=== PATIENT | female | born 1950 | race African-American/Black ===

== ENCOUNTER 2020-01-13 18:29 | Inpatient (IN) ==
[2020-01-14] MEDS ORDERED: D5 1/2 NS 1000 ML 1,000 ML IV ONE (00:15)
[2020-01-14] MEDS ORDERED: PEPCID TAB 20 MG PO PRN (00:16)
[2020-01-14] MEDS ORDERED: PLAQUENIL PO SCH (00:20)
[2020-01-14] MEDS ORDERED: ALLEGRA PO SCH (00:21)
[2020-01-14] MEDS ORDERED: D5W 1000 ML IV 1,000 ML IV ONE (00:54)
[2020-01-14] MEDS ORDERED: ZOFRAN INJ 4 MG VIAL ONE (01:09)
[2020-01-14] MEDS ORDERED: PHENERGAN INJ 25 MG IM ONE (01:19)
[2020-01-14 01:33] LABS: BASOPHILS % (AUTO) 0.2 % (0.2-1.0); EOSINOPHILS % (AUTO) 0.1 % (0.9-2.9); HEMATOCRIT 48.1 % (36.0-47.0); HEMOGLOBIN 15.7 g/dL (12.0-16.0); LYMPHOCYTES # (AUTO) 0.7 X10^3/uL (1.3-2.9); LYMPHOCYTES % (AUTO) 8.6 % (21.0-51.0); MEAN CORPUSCULAR HEMOGLOBIN 26.7 pg (27.0-34.0); MEAN CORPUSCULAR HGB CONC 32.7 g/dL (33.0-35.0); MEAN CORPUSCULAR VOLUME 81.6 fL (80.0-100.0); MEAN PLATELET VOLUME 8.9 fL (7.4-11.0); MONOCYTES # (AUTO) 0.9 x10^3/uL (0.3-0.8); MONOCYTES % (AUTO) 10.3 % (0.0-13.0); NEUTROPHILS # (AUTO) 6.8 x10^3/uL (2.2-4.8); NEUTROPHILS % (AUTO) 80.8 % (42.0-75.0); PLATELET COUNT 280 X10^3/uL (150.0-450.0); RED CELL DISTRIBUTION WIDTH 16.2 % (11.6-16.5); WHITE BLOOD COUNT 8.4 X10^3/uL (3.6-10.0)
[2020-01-14 01:43] LABS: ALBUMIN 2.7 g/dL (3.4-5.0); CALCIUM 8.2 mg/dL (8.5-10.1); CARBON DIOXIDE 15.8 mmol/L (21-32); COR CA(FOR HYPOALB) 9.2 mg/dL (8.5-10.1); CREATININE 7.5 mg/dL (0.55-1.02); MAGNESIUM 3.6 mg/dL (1.7-2.9); TOTAL PROTEIN 8.5 g/dL (6.4-8.2)
[2020-01-14 02:13] LABS: BILIRUBIN,URINE 1+ (NEGATIVE); BLOOD/HEMOGLOBIN,URINE 2+ (NEGATIVE); GLUCOSE, URINE NEGATIVE (NEGATIVE); KETONES,URINE NEGATIVE (NEGATIVE); LEUKOCYTE ESTERASE ,URINE NEGATIVE (NEGATIVE); NITRITES,URINE NEGATIVE (NEGATIVE); PROTEIN,URINE 2+ (NEGATIVE); UROBILINOGEN,URINE NORMAL (NORMAL)
[2020-01-14 02:27] LABS: AMORPHOUS SEDIMENT,UR 1+ /HPF (NEGATIVE); APPEARANCE,URINE CLEAR (CLEAR); BACTERIA,URINE TRACE /HPF (NEGATIVE); CALCIUM OXALATE CRYSTALS,UR RARE /HPF (NEGATIVE); COLOR,URINE YELLOW (YELLOW); RBC,URINE 0-2 /HPF (0-3); SQUAMOUS EPITHELIAL CELL,UR RARE /HPF (NEGATIVE)
[2020-01-14] MEDS ORDERED: ZITHROMAX INJ 500 MG VIAL 500 MG in NS 250 ML IV 250 ML IV ONE (03:00)
[2020-01-14] MEDS ORDERED: INVANZ INJ 1 GM VIAL 0.5 GM in NS 50 ML IV 50 ML IV ONE (03:00)
[2020-01-14] MEDS ORDERED: INVANZ INJ 1 GM VIAL ONE (03:15)
[2020-01-14] MEDS ORDERED: NS 50 ML IV + SPIKE MINIBAG* 50 ML IV ONE (03:15)
[2020-01-14] MEDS: D5 1/2 NS 1000 ML 1,000 ML IV SCH ×4 (04:29→23:41)
--- NOTE | 2020-01-14 06:10 | RAD ---
HISTORYCOVIDSTUDYCHEST, 1 [id number]/09/2019 stable compared to prior examFINDINGSThe trachea is midline. The cardiac silhouette is unremarkable. Patchy bilateral basilar opacities, concerning for multifocal pneumonia/infiltrates. Small left pleural effusion suspected.. The bony thorax is unremarkable.IMPRESSIONPatchy bibasilar opacities, left greater than right, concerning for multifocal infiltrate/pneumonia. Follow-up is recommended.Small left pleural effusion.Electronically signed by: Melissa Bella (Jan 14, 2020 06:10:04)
--- NOTE | 2020-01-14 07:28 | US ---
HISTORYACUTE RENAL FAILURESTUDYRENAL SONOGRAMCOMPARISONNoneTECHNIQUERenal sonogram with DopplerFINDINGSThe right kidney measures 9 x 5 x 5.5 cm and the left 9 x 4 x 5.6 cm. Normal cortical thickness. The kidneys appear echogenic. No hydronephrosis, calculus or mass identified. Normal vascularity to both kidneys.IMPRESSIONEchogenic kidneys consistent with medical renal disease.Electronically signed by: Phuc Jean-Baptiste (Jan 14, 2020 07:28:02)
[2020-01-14 07:49] LABS: ABG BASE EXCESS -11.5 mmol/L (-2.0-2.0)
[2020-01-14 07:50] LABS: ABG HCO3 12.4 mmol/L (22-26)
[2020-01-14] MEDS ORDERED: PEPCID TAB 20 MG PO SCH (09:00)
[2020-01-14] MEDS: ALLEGRA PO SCH ×2 (10:25→13:18)
[2020-01-14] MEDS: PEPCID TAB 20 MG PO SCH ×3 (10:26→13:19)
[2020-01-14] MEDS: PLAQUENIL PO SCH ×3 (10:26→22:00)
[2020-01-14] MEDS: LOVENOX INJ 30 MG SYR SC SCH (11:32)
[2020-01-14] MEDS ORDERED: ALLEGRA ONE (12:18)
[2020-01-14] MEDS ORDERED: ATIVAN INJ 2 MG VIAL IVP ONE (17:10)
[2020-01-14] MEDS ORDERED: ATIVAN INJ 2 MG VIAL ONE (17:13)
--- NOTE | 2020-01-14 18:02 | DR.H&P ---
H&P - History & Physical for Day of: H&P Date: 01/13/20 - Chief Complaint Chief Complaint: PNEUMONIA, DEHYDRATION, LETHARGY, ELEVATED POTASSIUM LEVEL REPORTED FROM OUTPT LABS, COVID 19 - History of Present Illness History of Present Illness: PT IS 69 BF DIRECT ADMIT FROM [place] WITH COVID 19 PNEUMONIA AND COMPLICATIONS INCLUDING DEHYDRATION, RENAL FAILURE, AND HYPERKALEMIA. PT ADMITTED FOR TREATMENT OF ACUTE, CRITICAL ILLNESS. - Past Medical History Past Medical History: Anxiety, Arthritis, Coronary Artery Disease, GERD, Hypertension - Social History Does patient currently use any type of tobacco product: No Have you used tobacco products in the last 12 months: No Type of Tobacco Use: None Alcohol Use: None Drug Use: None - Medications Home Medications: No Known Drug Allergies Allergy (Verified 01/14/20 02:39) CONTINUE taking the following medications amlodipine [Norvasc] 5 mg PO DAILY 01/14/20 [History] ascorbic acid (vitamin C) 1,000 mg PO BID 01/14/20 [History] azithromycin 500 mg PO DAILY 01/14/20 [History] famotidine 20 mg PO BID 01/14/20 [History] fexofenadine [Daniella Allergy] 180 mg PO DAILY 01/14/20 [History] hydroxychloroquine 200 mg PO BID 01/14/20 [History] hydroxyzine HCl 12.5 mg PO HS 01/14/20 [History] levofloxacin 250 mg PO DAILY 01/14/20 [History] losartan 100 mg PO DAILY 01/14/20 [History] mirtazapine [Remeron] 7.5 mg PO HS 01/14/20 [History] multivitamin [Daily-Zhang] 1 tab PO DAILY 01/14/20 [History] omeprazole 20 mg PO DAILY 01/14/20 [History] prednisone 20 mg PO DAILY 01/14/20 [History] zinc 220 mg PO DAILY 01/14/20 [History] - Review of Systems Constitutional: Fever, Weakness, Malaise Eyes: No Symptoms Reported ENT: Throat Pain Respiratory: Cough, Shortness of Breath Cardiovascular: No Symptoms Reported Gastrointestinal: Nausea Genitourinary: Retention Musculoskeletal: Back Pain, Leg Pain Skin: No Symptoms Reported Neurological: Weakness - Physical Exam Vital Signs: Temperature 98.4 F Pulse Rate [Apical] 113 Respiratory Rate 18 Blood Pressure [Right Arm] 148/73 O2 Sat by Pulse Oximetry 94 Oriented: Person Eyes: Normal Ear: Normal Nose: Normal Throat: Dry Respiratory: Diminished Throughout Cardiovascular: Tachycardia. negative: Edema : Normal Auscultation: Bowel Sounds: Normal Palpation: Normal Tenderness: Normal Skin: Decreased Turgur Musculoskeletal: Right, Left, Leg, Motor Deficit Mood Description: Flat Speech Pattern: Appropriate, Delayed - Assessment/Plan (1) Pneumonia due to COVID-19 virus Status: Acute Plan: ADMIT ICU, ISOLATION. IV HYDRATION, STRICT I &OS. IV ATBX THERAPY, BLOOD URINE AND SPUTUM CULTURE ON ADMISSION. VERIFY HOME MEDICATION. EKG, CE, CXR AND ABG. ELECTROLYTE CORRECTION (2) Hypoxia Status: Acute (3) Hyperkalemia Status: Acute (4) Acute renal failure Status: Acute - Allergies Allergies/Adverse Reactions: Allergies Allergy/AdvReac Type Severity Reaction Status Date / Time No Known Drug Allergies Allergy Verified 01/14/20 02:39
--- NOTE | 2020-01-14 19:13 | RAD ---
HISTORYCENTRAL LINE PLACEMENTSTUDYCHEST, 1 [id number]/19/2020 at 4:14 a.m.FINDINGSThe heart is normal. The pulmonary vessels are slightly prominent centrally. The lungs are hypoinflated with hazy bibasilar interstitial prominence which is increased. There is a left subclavian catheter in place with the tip extending slightly superiorly along proximal superior vena cava. No effusion or pneumothorax is seen.IMPRESSIONStatus post left subclavian catheter placement with the tip seen turned slightly superiorly along the superior vena cava. Suggest readjusting the catheter into the distal superior vena cava.Mild bibasilar atelectasis vs early infiltrates or scarring which is more prominent.Electronically signed by: MITCH PERKINS (Jan 14, 2020 19:12:52)
[2020-01-14 20:50] VITALS: BMI 16.6
[2020-01-15 05:01] LABS: BASOPHILS % (AUTO) 0.5 % (0.2-1.0); EOSINOPHILS % (AUTO) 0.3 % (0.9-2.9); HEMATOCRIT 44.9 % (36.0-47.0); HEMOGLOBIN 14.6 g/dL (12.0-16.0); LYMPHOCYTES # (AUTO) 0.6 X10^3/uL (1.3-2.9); LYMPHOCYTES % (AUTO) 12.7 % (21.0-51.0); MEAN CORPUSCULAR HEMOGLOBIN 26.6 pg (27.0-34.0); MEAN CORPUSCULAR HGB CONC 32.6 g/dL (33.0-35.0); MEAN CORPUSCULAR VOLUME 81.7 fL (80.0-100.0); MEAN PLATELET VOLUME 9.1 fL (7.4-11.0); MONOCYTES # (AUTO) 0.7 x10^3/uL (0.3-0.8); MONOCYTES % (AUTO) 13.1 % (0.0-13.0); NEUTROPHILS # (AUTO) 3.7 x10^3/uL (2.2-4.8); NEUTROPHILS % (AUTO) 73.4 % (42.0-75.0); PLATELET COUNT 257 X10^3/uL (150.0-450.0); RED BLOOD COUNT 5.49 X10^6/uL (3.5-5.4); RED CELL DISTRIBUTION WIDTH 15.5 % (11.6-16.5)
--- NOTE | 2020-01-15 05:04 | RAD ---
HISTORYSOBSTUDYCHEST, 1 [id number]/19/2020FINDINGSLeft subclavian central venous catheter has been readjusted, with its tip now projecting over the expected location of the superior to mid SVC. Patient is rotated to the left. Cardiomediastinal silhouette is mildly enlarged. Mild bilateral perihilar interstitial edema versus infiltrates. Left basilar atelectasis versus infiltrate with mild elevation of the left hemidiaphragm. No large pleural effusion. No pneumothorax. Osseous structures are stable.IMPRESSIONLeft subclavian CVC repositioning as detailed.Mild perihilar interstitial edema versus infiltrates.Elevated left hemidiaphragm with left basilar atelectasis versus infiltrates.Electronically signed by: Melissa Bella (Jan 15, 2020 05:03:14)
[2020-01-15 05:11] LABS: ALBUMIN 2.6 g/dL (3.4-5.0); CALCIUM 8.1 mg/dL (8.5-10.1); CARBON DIOXIDE 18.8 mmol/L (21-32); COR CA(FOR HYPOALB) 9.2 mg/dL (8.5-10.1); CREATININE 4.54 mg/dL (0.55-1.02); TOTAL PROTEIN 7.6 g/dL (6.4-8.2)
[2020-01-15 06:31] LABS: ABG HCO3 12.6 mmol/L (22-26)
[2020-01-15] MEDS: D5 1/2 NS 1000 ML 1,000 ML IV SCH ×2 (06:33→16:10)
[2020-01-15] MEDS ORDERED: REMDESIVIR (INVESTIGATIONAL DRUG GS-5734) 200 MG in NS 250 ML IV 250 ML IV NR (09:00)
[2020-01-15] MEDS: LOVENOX INJ 30 MG SYR SC SCH (09:57)
[2020-01-15] MEDS: REMDESIVIR (INVESTIGATIONAL DRUG GS-5734) 100 MG in NS 250 ML IV 250 ML IV SCH (09:58)
[2020-01-15] MEDS ORDERED: ALLEGRA ONE (10:04)
[2020-01-15] MEDS: ALLEGRA PO SCH (10:05)
[2020-01-15] MEDS: NORVASC TAB 5 MG PO SCH (10:06)
[2020-01-15] MEDS: PLAQUENIL PO SCH ×2 (10:07→23:24)
[2020-01-15] MEDS ORDERED: NS 50 ML IV + SPIKE MINIBAG* 50 ML IV ONE (10:08)
[2020-01-15] MEDS ORDERED: INVANZ INJ 1 GM VIAL ONE (10:08)
[2020-01-15] MEDS: PEPCID TAB 20 MG PO SCH (10:12)
[2020-01-15] MEDS: ZITHROMAX INJ 500 MG VIAL 500 MG in NS 250 ML IV 250 ML IV SCH (10:13)
[2020-01-15] MEDS: INVANZ INJ 1 GM VIAL 0.5 GM in NS 50 ML IV 50 ML IV SCH (10:15)
[2020-01-15] MEDS ORDERED: PROTONIX INJ 40 MG VIAL IVP SCH (14:00)
[2020-01-15] MEDS ORDERED: LASIX IVP SCH (14:00)
[2020-01-15] MEDS: SOLU-Medrol 125 MG VIAL IVP SCH ×2 (15:16→23:24)
[2020-01-15] MEDS: BENADRYL INJ 50 MG VIAL IVP SCH (17:05)
[2020-01-15] MEDS: PROTONIX INJ 40 MG VIAL IVP SCH (23:24)
[2020-01-16] MEDS: BENADRYL INJ 50 MG VIAL IVP SCH ×3 (01:56→17:58)
[2020-01-16] MEDS ORDERED: SOLU-Medrol 40 MG VIAL ONE (04:38)
[2020-01-16] MEDS: SOLU-Medrol 125 MG VIAL IVP SCH ×3 (06:13→21:01)
[2020-01-16] MEDS ORDERED: ALLEGRA ONE (09:24)
[2020-01-16] MEDS: D5 1/2 NS 1000 ML 1,000 ML IV SCH (09:40)
[2020-01-16] MEDS: ALLEGRA PO SCH (09:42)
[2020-01-16] MEDS: NORVASC TAB 5 MG PO SCH (09:43)
[2020-01-16] MEDS: PEPCID TAB 20 MG PO SCH (09:43)
[2020-01-16] MEDS: LOVENOX INJ 30 MG SYR SC SCH (09:43)
[2020-01-16] MEDS: REMDESIVIR (INVESTIGATIONAL DRUG GS-5734) 100 MG in NS 250 ML IV 250 ML IV SCH (09:44)
[2020-01-16] MEDS: PROTONIX INJ 40 MG VIAL IVP SCH ×2 (09:44→20:47)
[2020-01-16] MEDS: PLAQUENIL PO SCH ×3 (09:44→20:48)
[2020-01-16] MEDS: ZITHROMAX INJ 500 MG VIAL 500 MG in NS 250 ML IV 250 ML IV SCH (10:30)
[2020-01-16] MEDS: INVANZ INJ 1 GM VIAL 0.5 GM in NS 50 ML IV 50 ML IV SCH (15:00)
[2020-01-16 16:51] LABS: BASOPHILS % (AUTO) 0.3 % (0.2-1.0); HEMATOCRIT 39.4 % (36.0-47.0); LYMPHOCYTES # (AUTO) 0.4 X10^3/uL (1.3-2.9); LYMPHOCYTES % (AUTO) 8.3 % (21.0-51.0); MEAN CORPUSCULAR HEMOGLOBIN 26.7 pg (27.0-34.0); MEAN CORPUSCULAR HGB CONC 32.9 g/dL (33.0-35.0); MEAN CORPUSCULAR VOLUME 81.1 fL (80.0-100.0); MEAN PLATELET VOLUME 8.7 fL (7.4-11.0); MONOCYTES # (AUTO) 0.2 x10^3/uL (0.3-0.8); MONOCYTES % (AUTO) 4.3 % (0.0-13.0); NEUTROPHILS # (AUTO) 3.8 x10^3/uL (2.2-4.8); NEUTROPHILS % (AUTO) 87.1 % (42.0-75.0); PLATELET COUNT 268 X10^3/uL (150.0-450.0); RED BLOOD COUNT 4.85 X10^6/uL (3.5-5.4); RED CELL DISTRIBUTION WIDTH 15.7 % (11.6-16.5); WHITE BLOOD COUNT 4.3 X10^3/uL (3.6-10.0)
[2020-01-16 16:54] LABS: CALCIUM 8.3 mg/dL (8.5-10.1); CARBON DIOXIDE 22.7 mmol/L (21-32); CREATININE 2.76 mg/dL (0.55-1.02)
[2020-01-16 16:59] LABS: ALBUMIN 2.8 g/dL (3.4-5.0); COR CA(FOR HYPOALB) 9.3 mg/dL (8.5-10.1); TOTAL PROTEIN 7.8 g/dL (6.4-8.2)
[2020-01-16] MEDS: D5W 1000 ML IV 1,000 ML IV SCH (17:45)
[2020-01-16] MEDS ORDERED: PROCALAMINE 3 % 1,000 ML IV SCH (18:00)
[2020-01-16] MEDS: PROCALAMINE 3 % 1,000 ML IV SCH (18:18)
[2020-01-16] MEDS ORDERED: COLACE CAP 100 MG PO ONE (19:41)
[2020-01-16] MEDS: COLACE CAP 100 MG PO SCH (20:47)
[2020-01-17] MEDS: BENADRYL INJ 50 MG VIAL IVP SCH ×3 (01:56→17:48)
[2020-01-17] MEDS: SOLU-Medrol 125 MG VIAL IVP SCH ×3 (05:59→21:02)
[2020-01-17] MEDS: D5W 1000 ML IV 1,000 ML IV SCH ×2 (06:00→10:23)
[2020-01-17 06:15] LABS: BASOPHILS % (AUTO) 0.2 % (0.2-1.0); HEMATOCRIT 39.2 % (36.0-47.0); HEMOGLOBIN 12.8 g/dL (12.0-16.0); LYMPHOCYTES # (AUTO) 0.3 X10^3/uL (1.3-2.9); MEAN CORPUSCULAR HEMOGLOBIN 26.4 pg (27.0-34.0); MEAN CORPUSCULAR HGB CONC 32.7 g/dL (33.0-35.0); MEAN PLATELET VOLUME 8.3 fL (7.4-11.0); MONOCYTES # (AUTO) 0.3 x10^3/uL (0.3-0.8); MONOCYTES % (AUTO) 5.5 % (0.0-13.0); NEUTROPHILS # (AUTO) 5.1 x10^3/uL (2.2-4.8); NEUTROPHILS % (AUTO) 88.3 % (42.0-75.0); PLATELET COUNT 271 X10^3/uL (150.0-450.0); RED BLOOD COUNT 4.84 X10^6/uL (3.5-5.4); RED CELL DISTRIBUTION WIDTH 15.4 % (11.6-16.5); WHITE BLOOD COUNT 5.8 X10^3/uL (3.6-10.0)
[2020-01-17 06:25] LABS: ALBUMIN 2.7 g/dL (3.4-5.0); CALCIUM 8.5 mg/dL (8.5-10.1); COR CA(FOR HYPOALB) 9.5 mg/dL (8.5-10.1); CREATININE 2.5 mg/dL (0.55-1.02); TOTAL PROTEIN 7.7 g/dL (6.4-8.2)
--- NOTE | 2020-01-17 06:41 | RAD ---
HISTORYSOB pneumoniaSTUDYAP [id number]/20/2020FINDINGSStable heart size. Persistent interstitial densities in both lungs which may represent chronic peribronchial thickening or a more acute inflammatory process. There is no new consolidation, PE or pleural fluid. Left subclavian catheter again noted terminating near the cavoatrial junction.IMPRESSIONThere is no significant change in appearance of the chest since 01/15/2020.Electronically signed by: JAMES CONWAY (Jan 17, 2020 06:40:46)
[2020-01-17] MEDS ORDERED: ALLEGRA ONE (08:43)
[2020-01-17] MEDS: ZITHROMAX INJ 500 MG VIAL 500 MG in NS 250 ML IV 250 ML IV SCH (10:01)
[2020-01-17] MEDS: REMDESIVIR (INVESTIGATIONAL DRUG GS-5734) 100 MG in NS 250 ML IV 250 ML IV SCH (10:02)
[2020-01-17] MEDS: PROTONIX INJ 40 MG VIAL IVP SCH ×2 (10:03→21:02)
[2020-01-17] MEDS: LOVENOX INJ 30 MG SYR SC SCH (10:03)
[2020-01-17] MEDS: PEPCID TAB 20 MG PO SCH (10:17)
[2020-01-17] MEDS: NORVASC TAB 5 MG PO SCH (10:17)
[2020-01-17] MEDS: ALLEGRA PO SCH (10:17)
[2020-01-17] MEDS: PLAQUENIL PO SCH ×2 (10:18→21:02)
--- NOTE | 2020-01-17 11:16 | PCM.PROG ---
Progress Note - Progress Note for Day of Date of Exam: 01/17/20 - Subjective Subjective: IS A PATIENT OF . SHE IS BEING TREATED FOR PNEUMONIA DUE TO COVID-19, HYPOXIA, ACUTE RENAL FAILURE, URINARY TRACT INFECTION, AND DYSPHAGIA. SHE IS A RESIDENT OF [facility]. TODAY, SHE IS LYING IN BED ON MORNING ROUNDS. SHE AWAKENS TO VERBAL STIMULI. SHE C ONTINUES WITH COMPLAINTS OF HICCUPS, WEAKNESS, AND A MILD COUGH. SHE CONTINUES TO REPORT DIFFICULTY SWALLOWING. SHE IS CURRENTLY UTILIZING OXYGEN VIA NASAL CANNULA. ON EXAMINATION, HEART IS REGULAR IN RATE AND RHYTHM. BILATERAL LUNGS ARE NOTED WITH DIMINISHED LUNG SOUNDS THROUGHOUT. ABDOMEN IS ROUND, SOFT, AND NON-TENDER WITH NORMAL BOWEL SOUNDS NOTED IN ALL QUADRANTS. HER VITALS THIS MORNING ARE: 98.0-98-18-95%NC-136/81. LABS WERE OBTAINED. ABNORMAL LAB VALUES INCLUDE THE FOLLOWING: SODIUM 150, CHLORIDE 114, BUN 101, CREATININE 2.50, GLUCOSE 150, FERRITIN 606, CRP 26.90, ALBUMIN 2.7, GLOBULIN 5.0. AN ABG WAS OBTAINED AND REVEALED: PH 7.310, PC02 25, P02 96, HC03 12.6, 02 ST 97, BASE EXCESS -12.0, FI02 28. A CHEST XRAY WAS OBTAINED AND REVEALED: Stable heart size. Persistent interstitial densities in both lungs which may represent chronic peribronchial thickening or a more acute inflammatory process. There is no new consolidation, PE or pleural fluid. Left subclavian catheter again noted terminating near the cavoatrial junction. SHE IS CURRENTLY RECEIVING D5W AT 75 ML/HR, REMDESIVIR 100MG IV DAILY, INVANZ 0.5G IV DAILY, AZITHROMYCIN 500MG IV DIALY, LOVENOX 30MG SC DAILY, SOLU-MEDROL 80MG IV Q8H, PROTONIX 40MG IV BID, PLAQUENIL 200MG PO BID, PROCALAMINE AT 50 ML/HR, NORVASC 5MG PO DAILY. WE WILL CONTINUE WITH CURRENT PLAN OF CARE TODAY. OTHERWISE, WE PLAN TO FOLLOW UP WITH AM LABS, CHEST XRAY, AND ABG AND CONTINUE TO MONITOR. - Past Medical Family Social History Past Med/Fam/Surg Hx: No changes since H&P Allergies: Allergies No Known Drug Allergies Allergy (Verified 01/14/20 02:39) - Review of Systems ROS: No change since H&P - Vital Signs and I&O's Vital Signs: Temperature 98 F Pulse Rate [Apical] 98 Respiratory Rate 18 Blood Pressure [Right Arm] 136/81 O2 Sat by Pulse Oximetry 95 Intake and Output: Intake & Output 01/14/20 01/15/20 01/16/20 01/17/20 11:59 11:59 11:59 11:59 Intake Total 1310 / 1310 2089 / 0 2062 / 2062 2723 / 2723 Output Total 50 / 50 1200 / 1200 2575 / 2575 1850 / 1850 Balance 1260 / 1260 890 / 890 -512 / -512 873 / 873 - Physical Exam Oriented: Person Eyes: Normal Ear: Normal Nose: Normal Throat: Dry Respiratory: Generalized, Diminished Cardiovascular: Normal. negative: Edema : Normal Auscultation: Bowel Sounds: Normal Palpation: Normal Tenderness: Normal Skin: Decreased Turgur Musculoskeletal: Right, Left, Leg, Motor Deficit Mood Description: Flat Speech Pattern: Slurred - Laboratory and Diagnostics Result Diagrams: 01/17/20 05:55 01/17/20 05:55 Labs: 01/14/20 01:30 Urine,Clean Catch Urine Culture - Final Klebsiella Pneumoniae 01/14/20 00:50 Blood Blood Culture - Preliminary 01/14/20 03:45 Blood Blood Culture - Preliminary Laboratory WBC 5.8 X10^3/uL (3.6-10.0) 01/17/20 05:55 RBC 4.84 X10^6/uL (3.5-5.4) 01/17/20 05:55 Hgb 12.8 g/dL (12.0-16.0) 01/17/20 05:55 Hct 39.2 % (36.0-47.0) 01/17/20 05:55 MCV 81.0 fL (80.0-100.0) 01/17/20 05:55 MCH 26.4 pg (27.0-34.0) L 01/17/20 05:55 MCHC 32.7 g/dL (33.0-35.0) L 01/17/20 05:55 RDW 15.4 % (11.6-16.5) 01/17/20 05:55 Plt Count 271 X10^3/uL (150.0-450.0) 01/17/20 05:55 MPV 8.3 fL (7.4-11.0) 01/17/20 05:55 Neut % (Auto) 88.3 % (42.0-75.0) H 01/17/20 05:55 Lymph % (Auto) 6.0 % (21.0-51.0) L 01/17/20 05:55 [place] % (Auto) 5.5 % (0.0-13.0) 01/17/20 05:55 Eos % (Auto) 0.0 % (0.9-2.9) L 01/17/20 05:55 Baso % (Auto) 0.2 % (0.2-1.0) 01/17/20 05:55 Neut # (Auto) 5.1 x10^3/uL (2.2-4.8) H 01/17/20 05:55 Lymph # (Auto) 0.3 X10^3/uL (1.3-2.9) L 01/17/20 05:55 [place] # (Auto) 0.3 x10^3/uL (0.3-0.8) 01/17/20 05:55 Eos # (Auto) 0.0 x10^3/uL (0.0-0.2) 01/17/20 05:55 Baso # (Auto) 0.0 X10^3/uL (0.0-0.1) 01/17/20 05:55 Absolute Nucleated RBC 0.0 /100WBC 01/17/20 05:55 Sample Site Rbra 01/15/20 06:27 ABG pH 7.310 (7.35-7.45) L 01/15/20 06:27 ABG pCO2 25.0 mmHg (35.0-45.0) L 01/15/20 06:27 ABG pO2 96.0 mmHg (80.0-100.0) 01/15/20 06:27 ABG HCO3 12.6 mmol/L (22-26) L* 01/15/20 06:27 ABG O2 Saturation 97.0 % (90-100) 01/15/20 06:27 ABG Base Excess -12.0 mmol/L (-2.0-2.0) L 01/15/20 06:27 Ephraim Test N/a 01/15/20 06:27 A-a Gradient 72.0 mmHg 01/15/20 06:27 FiO2 28.0 01/15/20 06:27 Blood Gas Comments Pt monique well eb 01/15/20 06:27 Sodium 150 mmol/L (136-145) H* 01/17/20 05:55 Corrected Sodium 151 mmol/L (136-145) H 01/17/20 05:55 Potassium 3.9 mmol/L (3.5-5.1) 01/17/20 05:55 Chloride 114 mmol/L (98-107) H 01/17/20 05:55 Carbon Dioxide 22.0 mmol/L (21-32) 01/17/20 05:55 BUN 101 mg/dL (7-18) H 01/17/20 05:55 Creatinine 2.50 mg/dL (0.55-1.02) H 01/17/20 05:55 Est GFR (MDRD) Af Amer 24 (>60) L 01/17/20 05:55 Est GFR (MDRD) Non-Af 20 (>60) L 01/17/20 05:55 Glucose 154 mg/dL (65-99) H 01/17/20 05:55 Lactic Acid 1.6 mmol/L (0.4-2.0) 01/14/20 00:50 Calcium 8.5 mg/dL (8.5-10.1) 01/17/20 05:55 Corrected Calcium 9.5 mg/dL (8.5-10.1) 01/17/20 05:55 Magnesium 3.6 mg/dL (1.7-2.9) H 01/14/20 00:50 Ferritin 606 ng/mL (8-252) H 01/17/20 05:55 Total Bilirubin 0.20 mg/dL (0.2-1.0) 01/17/20 05:55 AST 18 Units/L (15-37) 01/17/20 05:55 ALT 20 Units/L (12-78) 01/17/20 05:55 Alkaline Phosphatase 85 Units/L (46-116) 01/17/20 05:55 C-Reactive Protein 26.90 mg/L (0-3.0) H 01/17/20 05:55 Total Protein 7.7 g/dL (6.4-8.2) 01/17/20 05:55 Albumin 2.7 g/dL (3.4-5.0) L 01/17/20 05:55 Globulin 5.0 g/dL (2.5-4.5) H 01/17/20 05:55 Albumin/Globulin Ratio 0.5 Ratio (1.1-2.1) L 01/17/20 05:55 Specimen Type Catherized urine 01/14/20 01:30 Urine Color Yellow (YELLOW) 01/14/20 01:30 Urine Appearance Clear (CLEAR) 01/14/20 01:30 Urine pH 5.0 (5.0 - 8.0) 01/14/20 01:30 Ur Specific [place] 1.025 (1.000-1.030) 01/14/20 01:30 Urine Protein 2+ (NEGATIVE) 01/14/20 01:30 Urine Glucose (UA) Negative (NEGATIVE) 01/14/20 01:30 Urine Ketones Negative (NEGATIVE) 01/14/20 01:30 Urine Occult Blood 2+ (NEGATIVE) 01/14/20 01:30 Urine Nitrite Negative (NEGATIVE) 01/14/20 01:30 Urine Bilirubin 1+ (NEGATIVE) 01/14/20 01:30 Urine Urobilinogen Normal (NORMAL) 01/14/20 01:30 Ur Leukocyte Esterase Negative (NEGATIVE) 01/14/20 01:30 Urine RBC 0-2 /HPF (0-3) 01/14/20 01:30 Urine WBC None seen /HPF (0-5) 01/14/20 01:30 Ur Squamous Epith Cells Rare /HPF (NEGATIVE) 01/14/20 01:30 Calcium Oxalate Crystal Rare /HPF (NEGATIVE) 01/14/20 01:30 Amorphous Sediment 1+ /HPF (NEGATIVE) 01/14/20 01:30 Urine Bacteria Trace /HPF (NEGATIVE) 01/14/20 01:30 Ur Culture Indicated? No/not indicated 01/14/20 01:30 Blood Type A POSITIVE 01/14/20 00:50 - Plan (1) Pneumonia due to COVID-19 virus Status: Acute (2) Hypoxia Status: Acute (3) Hyperkalemia Status: Acute (4) Acute renal failure Status: Acute Qualifiers: Acute renal failure type: unspecified Qualified Code(s): N17.9 - Acute kidney failure, unspecified
[2020-01-17] MEDS ORDERED: INVANZ INJ 1 GM VIAL ONE (11:55)
[2020-01-17] MEDS ORDERED: NS 50 ML IV + SPIKE MINIBAG* 50 ML IV ONE (11:59)
[2020-01-17] MEDS: INVANZ INJ 1 GM VIAL 0.5 GM in NS 50 ML IV 50 ML IV SCH (12:03)
[2020-01-17] MEDS: PROCALAMINE 3 % 1,000 ML IV SCH (14:39)
[2020-01-17] MEDS: COLACE CAP 100 MG PO SCH (21:01)
[2020-01-18] MEDS: D5W 1000 ML IV 1,000 ML IV SCH ×3 (01:35→10:34)
[2020-01-18] MEDS: BENADRYL INJ 50 MG VIAL IVP SCH ×3 (01:35→18:03)
[2020-01-18] MEDS: SOLU-Medrol 125 MG VIAL IVP SCH ×3 (06:06→22:02)
[2020-01-18 06:41] LABS: ALBUMIN 2.6 g/dL (3.4-5.0); CALCIUM 8.5 mg/dL (8.5-10.1); CARBON DIOXIDE 23.6 mmol/L (21-32); COR CA(FOR HYPOALB) 9.6 mg/dL (8.5-10.1); CREATININE 1.92 mg/dL (0.55-1.02)
[2020-01-18 06:46] LABS: BASOPHILS % (AUTO) 0.2 % (0.2-1.0); EOSINOPHILS % (AUTO) 0.1 % (0.9-2.9); HEMATOCRIT 36.4 % (36.0-47.0); HEMOGLOBIN 12.1 g/dL (12.0-16.0); LYMPHOCYTES # (AUTO) 0.4 X10^3/uL (1.3-2.9); LYMPHOCYTES % (AUTO) 5.8 % (21.0-51.0); MEAN CORPUSCULAR HEMOGLOBIN 26.9 pg (27.0-34.0); MEAN CORPUSCULAR HGB CONC 33.2 g/dL (33.0-35.0); MEAN CORPUSCULAR VOLUME 81.1 fL (80.0-100.0); MEAN PLATELET VOLUME 8.7 fL (7.4-11.0); MONOCYTES # (AUTO) 0.3 x10^3/uL (0.3-0.8); MONOCYTES % (AUTO) 5.4 % (0.0-13.0); NEUTROPHILS # (AUTO) 5.6 x10^3/uL (2.2-4.8); NEUTROPHILS % (AUTO) 88.5 % (42.0-75.0); PLATELET COUNT 273 X10^3/uL (150.0-450.0); RED BLOOD COUNT 4.49 X10^6/uL (3.5-5.4); RED CELL DISTRIBUTION WIDTH 15.1 % (11.6-16.5); WHITE BLOOD COUNT 6.4 X10^3/uL (3.6-10.0)
--- NOTE | 2020-01-18 07:12 | RAD ---
HISTORYFollow-up COVID-19STUDYChest AP [id number]/22/2020FINDINGSPatient is rotated to the left. There is a left-sided central jay e in good position. The heart is within normal limits in size. The lungs are mildly hypoinflated. Rig ht basilar interstitial lung changes are present. The remainder of the lung blevins are clear. No pleu ral effusions are identified.IMPRESSIONRight basilar interstitial lung changes, stableRemainder of th e lung blevins are now clearElectronically signed by: JOSEPH FRAUSTO (Jan 18, 2020 07:12:13)
[2020-01-18] MEDS ORDERED: ALLEGRA ONE (09:37)
[2020-01-18] MEDS: REMDESIVIR (INVESTIGATIONAL DRUG GS-5734) 100 MG in NS 250 ML IV 250 ML IV SCH (10:32)
[2020-01-18] MEDS: PROTONIX INJ 40 MG VIAL IVP SCH ×2 (10:33→22:01)
[2020-01-18] MEDS: ZITHROMAX INJ 500 MG VIAL 500 MG in NS 250 ML IV 250 ML IV SCH (10:33)
[2020-01-18] MEDS: LOVENOX INJ 30 MG SYR SC SCH (10:33)
[2020-01-18] MEDS ORDERED: INVANZ INJ 1 GM VIAL ONE (12:23)
[2020-01-18] MEDS ORDERED: NS 50 ML IV 50 ML IV ONE (12:24)
[2020-01-18] MEDS: PEPCID TAB 20 MG PO SCH (12:31)
[2020-01-18] MEDS: PLAQUENIL PO SCH ×3 (12:31→22:01)
[2020-01-18] MEDS: ALLEGRA PO SCH (12:32)
[2020-01-18] MEDS: NORVASC TAB 5 MG PO SCH (12:32)
[2020-01-18] MEDS: PROCALAMINE 3 % 1,000 ML IV SCH (12:33)
[2020-01-18] MEDS: INVANZ INJ 1 GM VIAL 0.5 GM in NS 50 ML IV 50 ML IV SCH (12:34)
[2020-01-18] MEDS ORDERED: SOLU-Medrol 40 MG VIAL ONE (20:03)
[2020-01-18] MEDS: COLACE CAP 100 MG PO SCH (22:01)
--- NOTE | 2020-01-18 23:05 | PCM.PROG ---
Progress Note - Progress Note for Day of Date of Exam: 01/18/20 - Subjective Subjective: IS A PATIENT OF . SHE IS BEING TREATED FOR PNEUMONIA DUE TO COVID-19, HYPOXIA, ACUTE RENAL FAILURE, URINARY TRACT INFECTION, AND DYSPHAGIA. SHE IS A RESIDENT OF [facility]. TODAY, SHE IS LYING IN BED ON MORNING ROUNDS. SHE AWAKENS TO VERBAL STIMULI. SHE C ONTINUES WITH COMPLAINTS OF WEAKNESS AND A MILD COUGH. SHE CONTINUES TO REPORT DIFFICULTY SWALLOWING. SHE IS CURRENTLY UTILIZING OXYGEN VIA NASAL CANNULA. ON EXAMINATION, HEART IS REGULAR IN RATE AND RHYTHM. BILATERAL LUNGS ARE NOTED WITH DIMINISHED LUNG SOUNDS THROUGHOUT. ABDOMEN IS ROUND, SOFT, AND NON-TENDER WITH NORMAL BOWEL SOUNDS NOTED IN ALL QUADRANTS. HER VITALS THIS MORNING ARE: 97.9-62-16-98%-122/75. LABS WERE OBTAINED. ABNORMAL LAB VALUES INCLUDE THE FOLLOWING: CHLORIDE 109, BUN 82, CREATININE 1.92, GLUCOSE 150, FERRITIN 596, CRP 15.60, ALBUMIN 2.6. A CHEST XRAY WAS OBTAINED AND REVEALED: Stable heart size. Persistent interstitial densities in both lungs which may represent chronic peribronchial thickening or a more acute inflammatory process. There is no new consolidation, PE or pleural fluid. Left subclavian catheter again noted terminating near the cavoatrial junction. URINE CULTURE REVEALED GROWTH OF KLEBSIELLA PNEUMONIAE. BLOOD CULTURES ARE PENDING. SHE IS CURRENTLY RECEIVING D5W AT 75 ML/HR, REMDESIVIR 100MG IV DAILY, INVANZ 0.5G IV DAILY, AZITHROMYCIN 500MG IV DIALY, LOVENOX 30MG SC DAILY, SOLU-MEDROL 80MG IV Q8H, PROTONIX 40MG IV BID, PLAQUENIL 200MG PO BID, PROCALAMINE AT 50 ML/HR, NORVASC 5MG PO DAILY. WE WILL CONTINUE WITH CURRENT PLAN OF CARE TODAY. OTHERWISE, WE PLAN TO FOLLOW UP WITH AM LABS, CHEST XRAY, AND ABG AND CONTINUE TO MONITOR. - Past Medical Family Social History Past Med/Fam/Surg Hx: No changes since H&P Allergies: Allergies No Known Drug Allergies Allergy (Verified 01/14/20 02:39) - Review of Systems ROS: No change since H&P - Vital Signs and I&O's Vital Signs: Temperature 97.3 F Pulse Rate [Right] 75 Pulse Rate [Apical] 98 Respiratory Rate 18 Blood Pressure [Right Arm] 139/80 O2 Sat by Pulse Oximetry 99 Intake and Output: Intake & Output 01/16/20 01/17/20 01/18/20 01/19/20 11:59 11:59 11:59 11:59 Intake Total 2062 / 3 2723 / 2723 3228 / 3228 1648 / 1648 Output Total 2575 / 2575 1850 / 1850 1974 1025 / 1025 Balance -512 / -512 873 / 873 1253 / 1253 623 / 623 - Physical Exam Oriented: Person Eyes: Normal Ear: Normal Nose: Normal Throat: Dry Respiratory: Generalized, Diminished Cardiovascular: Normal. negative: Edema : Normal Auscultation: Bowel Sounds: Normal Tenderness: Normal Skin: Decreased Turgur Musculoskeletal: Right, Left, Leg, Motor Deficit Mood Description: Flat Speech Pattern: Slurred - Laboratory and Diagnostics Result Diagrams: 01/18/20 04:40 01/18/20 04:40 Labs: 01/14/20 01:30 Urine,Clean Catch Urine Culture - Final Klebsiella Pneumoniae 01/14/20 00:50 Blood Blood Culture - Preliminary 01/14/20 03:45 Blood Blood Culture - Preliminary Laboratory WBC 6.4 X10^3/uL (3.6-10.0) 01/18/20 04:40 RBC 4.49 X10^6/uL (3.5-5.4) 01/18/20 04:40 Hgb 12.1 g/dL (12.0-16.0) 01/18/20 04:40 Hct 36.4 % (36.0-47.0) 01/18/20 04:40 MCV 81.1 fL (80.0-100.0) 01/18/20 04:40 MCH 26.9 pg (27.0-34.0) L 01/18/20 04:40 MCHC 33.2 g/dL (33.0-35.0) 01/18/20 04:40 RDW 15.1 % (11.6-16.5) 01/18/20 04:40 Plt Count 273 X10^3/uL (150.0-450.0) 01/18/20 04:40 MPV 8.7 fL (7.4-11.0) 01/18/20 04:40 Neut % (Auto) 88.5 % (42.0-75.0) H 01/18/20 04:40 Lymph % (Auto) 5.8 % (21.0-51.0) L 01/18/20 04:40 [place] % (Auto) 5.4 % (0.0-13.0) 01/18/20 04:40 Eos % (Auto) 0.1 % (0.9-2.9) L 01/18/20 04:40 Baso % (Auto) 0.2 % (0.2-1.0) 01/18/20 04:40 Neut # (Auto) 5.6 x10^3/uL (2.2-4.8) H 01/18/20 04:40 Lymph # (Auto) 0.4 X10^3/uL (1.3-2.9) L 01/18/20 04:40 [place] # (Auto) 0.3 x10^3/uL (0.3-0.8) 01/18/20 04:40 Eos # (Auto) 0.0 x10^3/uL (0.0-0.2) 01/18/20 04:40 Baso # (Auto) 0.0 X10^3/uL (0.0-0.1) 01/18/20 04:40 Absolute Nucleated RBC 0.2 /100WBC 01/18/20 04:40 Sample Site Rbra 01/15/20 06:27 ABG pH 7.310 (7.35-7.45) L 01/15/20 06:27 ABG pCO2 25.0 mmHg (35.0-45.0) L 01/15/20 06:27 ABG pO2 96.0 mmHg (80.0-100.0) 01/15/20 06:27 ABG HCO3 12.6 mmol/L (22-26) L* 01/15/20 06:27 ABG O2 Saturation 97.0 % (90-100) 01/15/20 06:27 ABG Base Excess -12.0 mmol/L (-2.0-2.0) L 01/15/20 06:27 Ephraim Test N/a 01/15/20 06:27 A-a Gradient 72.0 mmHg 01/15/20 06:27 FiO2 28.0 01/15/20 06:27 Blood Gas Comments Pt moniqeu well eb 01/15/20 06:27 Sodium 145 mmol/L (136-145) 01/18/20 04:40 Corrected Sodium 146 mmol/L (136-145) H 01/18/20 04:40 Potassium 4.0 mmol/L (3.5-5.1) 01/18/20 04:40 Chloride 109 mmol/L (98-107) H 01/18/20 04:40 Carbon Dioxide 23.6 mmol/L (21-32) 01/18/20 04:40 BUN 82 mg/dL (7-18) H 01/18/20 04:40 Creatinine 1.92 mg/dL (0.55-1.02) H 01/18/20 04:40 Est GFR (MDRD) Af Amer 33 (>60) L 01/18/20 04:40 Est GFR (MDRD) Non-Af 27 (>60) L 01/18/20 04:40 Glucose 150 mg/dL (65-99) H 01/18/20 04:40 Lactic Acid 1.6 mmol/L (0.4-2.0) 01/14/20 00:50 Calcium 8.5 mg/dL (8.5-10.1) 01/18/20 04:40 Corrected Calcium 9.6 mg/dL (8.5-10.1) 01/18/20 04:40 Magnesium 3.6 mg/dL (1.7-2.9) H 01/14/20 00:50 Ferritin 596 ng/mL (8-252) H 01/18/20 04:40 Total Bilirubin 0.30 mg/dL (0.2-1.0) 01/18/20 04:40 AST 31 Units/L (15-37) 01/18/20 04:40 ALT 28 Units/L (12-78) 01/18/20 04:40 Alkaline Phosphatase 79 Units/L (46-116) 01/18/20 04:40 C-Reactive Protein 15.60 mg/L (0-3.0) H 01/18/20 04:40 Total Protein 7.0 g/dL (6.4-8.2) 01/18/20 04:40 Albumin 2.6 g/dL (3.4-5.0) L 01/18/20 04:40 Globulin 4.4 g/dL (2.5-4.5) 01/18/20 04:40 Albumin/Globulin Ratio 0.6 Ratio (1.1-2.1) L 01/18/20 04:40 Specimen Type Catherized urine 01/14/20 01:30 Urine Color Yellow (YELLOW) 01/14/20 01:30 Urine Appearance Clear (CLEAR) 01/14/20 01:30 Urine pH 5.0 (5.0 - 8.0) 01/14/20 01:30 Ur Specific [place] 1.025 (1.000-1.030) 01/14/20 01:30 Urine Protein 2+ (NEGATIVE) 01/14/20 01:30 Urine Glucose (UA) Negative (NEGATIVE) 01/14/20 01:30 Urine Ketones Negative (NEGATIVE) 01/14/20 01:30 Urine Occult Blood 2+ (NEGATIVE) 01/14/20 01:30 Urine Nitrite Negative (NEGATIVE) 01/14/20 01:30 Urine Bilirubin 1+ (NEGATIVE) 01/14/20 01:30 Urine Urobilinogen Normal (NORMAL) 01/14/20 01:30 Ur Leukocyte Esterase Negative (NEGATIVE) 01/14/20 01:30 Urine RBC 0-2 /HPF (0-3) 01/14/20 01:30 Urine WBC None seen /HPF (0-5) 01/14/20 01:30 Ur Squamous Epith Cells Rare /HPF (NEGATIVE) 01/14/20 01:30 Calcium Oxalate Crystal Rare /HPF (NEGATIVE) 01/14/20 01:30 Amorphous Sediment 1+ /HPF (NEGATIVE) 01/14/20 01:30 Urine Bacteria Trace /HPF (NEGATIVE) 01/14/20 01:30 Ur Culture Indicated? No/not indicated 01/14/20 01:30 Blood Type A POSITIVE 01/14/20 00:50 - Plan (1) Pneumonia due to COVID-19 virus Status: Acute Plan: ADMIT ICU, ISOLATION. IV HYDRATION, STRICT I &OS. IV ATBX THERAPY, BLOOD URINE AND SPUTUM CULTURE ON ADMISSION. VERIFY HOME MEDICATION. EKG, CE, CXR AND ABG. ELECTROLYTE CORRECTION (2) Hypoxia Status: Acute (3) Hyperkalemia Status: Acute (4) Acute renal failure Status: Acute Qualifiers: Acute renal failure type: unspecified Qualified Code(s): N17.9 - Acute kidney failure, unspecified
[2020-01-19] MEDS: BENADRYL INJ 50 MG VIAL IVP SCH ×3 (01:50→18:04)
[2020-01-19] MEDS: D5W 1000 ML IV 1,000 ML IV SCH ×2 (03:57→18:11)
[2020-01-19] MEDS ORDERED: SOLU-Medrol 40 MG VIAL ONE ×2 (05:49→13:28)
[2020-01-19] MEDS: PROCALAMINE 3 % 1,000 ML IV SCH ×2 (06:09→11:57)
[2020-01-19] MEDS: SOLU-Medrol 125 MG VIAL IVP SCH ×3 (06:09→22:36)
[2020-01-19 06:10] LABS: BASOPHILS % (AUTO) 0.1 % (0.2-1.0); HEMATOCRIT 35.6 % (36.0-47.0); HEMOGLOBIN 11.8 g/dL (12.0-16.0); LYMPHOCYTES # (AUTO) 0.4 X10^3/uL (1.3-2.9); LYMPHOCYTES % (AUTO) 7.5 % (21.0-51.0); MEAN CORPUSCULAR HEMOGLOBIN 26.5 pg (27.0-34.0); MEAN CORPUSCULAR HGB CONC 33.3 g/dL (33.0-35.0); MEAN CORPUSCULAR VOLUME 79.6 fL (80.0-100.0); MEAN PLATELET VOLUME 8.3 fL (7.4-11.0); MONOCYTES # (AUTO) 0.2 x10^3/uL (0.3-0.8); MONOCYTES % (AUTO) 4.5 % (0.0-13.0); NEUTROPHILS # (AUTO) 4.7 x10^3/uL (2.2-4.8); NEUTROPHILS % (AUTO) 87.9 % (42.0-75.0); PLATELET COUNT 242 X10^3/uL (150.0-450.0); RED BLOOD COUNT 4.47 X10^6/uL (3.5-5.4); RED CELL DISTRIBUTION WIDTH 14.9 % (11.6-16.5); WHITE BLOOD COUNT 5.3 X10^3/uL (3.6-10.0)
[2020-01-19 06:55] LABS: ALBUMIN 2.6 g/dL (3.4-5.0); CALCIUM 7.9 mg/dL (8.5-10.1); CARBON DIOXIDE 24.6 mmol/L (21-32); CREATININE 1.54 mg/dL (0.55-1.02); TOTAL PROTEIN 6.8 g/dL (6.4-8.2)
--- NOTE | 2020-01-19 07:41 | RAD ---
HISTORYShort of breathSTUDYCHEST, 1 VIEWCOMPARISONPortable chest January 18, 2020FINDINGSThe trachea is midline. The cardiac silhouette is unremarkable. A left subclavian port is in place tip in the superior vena cava. The lungs are clear without focal infiltrate or effusion. There is mild stable discoid atelectasis left lung base the bony thorax is unremarkable.IMPRESSIONNo acute cardiopulmonary disease and no significant change compared to the last film January 18, 2020..Electronically signed by: GISSELLE RUIZ (Jan 19, 2020 07:40:18)
[2020-01-19 08:00] LABS: PLATELET MORPHOLOGY COMMENT NORMAL (NORMAL)
[2020-01-19] MEDS ORDERED: ALLEGRA ONE (09:48)
[2020-01-19] MEDS ORDERED: INVANZ INJ 1 GM VIAL ONE (09:51)
[2020-01-19] MEDS ORDERED: NS 50 ML IV 50 ML IV ONE (09:52)
[2020-01-19] MEDS: ALLEGRA PO SCH (09:58)
[2020-01-19] MEDS: INVANZ INJ 1 GM VIAL 0.5 GM in NS 50 ML IV 50 ML IV SCH (09:59)
[2020-01-19] MEDS: NORVASC TAB 5 MG PO SCH (09:59)
[2020-01-19] MEDS: PEPCID TAB 20 MG PO SCH (10:00)
[2020-01-19] MEDS: LOVENOX INJ 30 MG SYR SC SCH (10:01)
[2020-01-19] MEDS: PLAQUENIL PO SCH ×2 (10:01→22:35)
[2020-01-19] MEDS: PROTONIX INJ 40 MG VIAL IVP SCH ×2 (10:02→22:36)
[2020-01-19] MEDS: REMDESIVIR (INVESTIGATIONAL DRUG GS-5734) 100 MG in NS 250 ML IV 250 ML IV SCH (10:03)
[2020-01-19] MEDS: ZITHROMAX INJ 500 MG VIAL 500 MG in NS 250 ML IV 250 ML IV SCH (11:16)
[2020-01-19 14:21] LABS: ABG ALLEN TEST POS; ABG BASE EXCESS 1.6 mmol/L (-2.0-2.0); ABG HCO3 24.2 mmol/L (22-26)
[2020-01-19] MEDS: COLACE CAP 100 MG PO SCH (22:35)
[2020-01-20] MEDS: BENADRYL INJ 50 MG VIAL IVP SCH ×3 (01:30→18:21)
[2020-01-20] MEDS: D5W 1000 ML IV 1,000 ML IV SCH ×2 (02:38→18:19)
--- NOTE | 2020-01-20 06:12 | RAD ---
HISTORYShortness of breath, COVID-19STUDYChest AP [id number]/24/2020FINDINGSThere is a left-sided central line with its tip in the superior v iveth cava. The heart is within normal limits in size. The cecelia are normal. The lungs are free of acute alveolar infiltrates. There is a focus of subsegmental atelectasis in the left lung base unchanged f rom the prior examination. No pleural effusions are identified. Bony thorax is unremarkable.IMPRESSIO NNo acute infiltratesSubsegmental atelectasis left lung base unchanged from the prior examinationElec tronically signed by: JOSEPH FRAUSTO (Jan 20, 2020 06:12:12)
[2020-01-20] MEDS: SOLU-Medrol 125 MG VIAL IVP SCH (06:19)
[2020-01-20 06:54] LABS: BASOPHILS % (AUTO) 0 % (0.2-1.0); HEMATOCRIT 35.5 % (36.0-47.0); HEMOGLOBIN 11.9 g/dL (12.0-16.0); LYMPHOCYTES # (AUTO) 0.4 X10^3/uL (1.3-2.9); LYMPHOCYTES % (AUTO) 10.1 % (21.0-51.0); MEAN CORPUSCULAR HEMOGLOBIN 26.7 pg (27.0-34.0); MEAN CORPUSCULAR HGB CONC 33.5 g/dL (33.0-35.0); MEAN CORPUSCULAR VOLUME 79.7 fL (80.0-100.0); MEAN PLATELET VOLUME 8.3 fL (7.4-11.0); MONOCYTES # (AUTO) 0.2 x10^3/uL (0.3-0.8); MONOCYTES % (AUTO) 4.9 % (0.0-13.0); NEUTROPHILS # (AUTO) 3.5 x10^3/uL (2.2-4.8); PLATELET COUNT 228 X10^3/uL (150.0-450.0); RED BLOOD COUNT 4.45 X10^6/uL (3.5-5.4); RED CELL DISTRIBUTION WIDTH 14.8 % (11.6-16.5); WHITE BLOOD COUNT 4.2 X10^3/uL (3.6-10.0)
[2020-01-20 07:14] LABS: ALBUMIN 2.6 g/dL (3.4-5.0); CALCIUM 7.6 mg/dL (8.5-10.1); CARBON DIOXIDE 26.4 mmol/L (21-32); COR CA(FOR HYPOALB) 8.7 mg/dL (8.5-10.1); CREATININE 1.31 mg/dL (0.55-1.02); TOTAL PROTEIN 6.6 g/dL (6.4-8.2)
[2020-01-20 08:37] LABS: PLATELET MORPHOLOGY COMMENT NORMAL (NORMAL)
[2020-01-20] MEDS ORDERED: ALLEGRA ONE (08:51)
[2020-01-20] MEDS ORDERED: NS 50 ML IV 50 ML IV ONE (08:52)
[2020-01-20] MEDS ORDERED: INVANZ INJ 1 GM VIAL ONE (08:52)
[2020-01-20] MEDS: INVANZ INJ 1 GM VIAL 0.5 GM in NS 50 ML IV 50 ML IV SCH (10:35)
[2020-01-20] MEDS: ZITHROMAX INJ 500 MG VIAL 500 MG in NS 250 ML IV 250 ML IV SCH (10:36)
[2020-01-20] MEDS: PEPCID TAB 20 MG PO SCH (10:37)
[2020-01-20] MEDS: PLAQUENIL PO SCH ×2 (10:38→21:00)
[2020-01-20] MEDS: NORVASC TAB 5 MG PO SCH (10:38)
[2020-01-20] MEDS: ALLEGRA PO SCH (10:38)
[2020-01-20] MEDS: PROTONIX INJ 40 MG VIAL IVP SCH ×2 (10:59→21:00)
[2020-01-20] MEDS: LOVENOX INJ 30 MG SYR SC SCH (10:59)
[2020-01-20] MEDS ORDERED: SOLU-Medrol 125 MG VIAL IVP SCH (14:00)
--- NOTE | 2020-01-20 14:32 | RAD ---
HISTORYC/O ABD PAINSTUDYKUBCOMPARISONNoneTECHNIQUESupine KUBFINDINGSNonobstructive bowel gas pattern. No definite pn eumatosis, free air or portal venous gas. No suspicious calcifications.Calcifications in the pelvis a re likely phleboliths.IMPRESSIONNonobstructive bowel gas pattern.Electronically signed by: Phuc Jean-Baptiste (Jan 20, 2020 14:32:06)
[2020-01-20] MEDS ORDERED: CARAFATE ONE (15:00)
[2020-01-20] MEDS: ZOFRAN INJ 4 MG VIAL IVP SCH ×2 (16:00→22:00)
[2020-01-20] MEDS: CARAFATE ORAL SUSP PO SCH ×2 (17:00→21:00)
[2020-01-20] MEDS ORDERED: SOLU-Medrol 40 MG VIAL ONE (20:39)
[2020-01-20] MEDS: SOLU-Medrol 40 MG VIAL IVP SCH (22:00)
[2020-01-20] MEDS: COLACE CAP 100 MG PO SCH (23:05)
[2020-01-21] MEDS: BENADRYL INJ 50 MG VIAL IVP SCH ×2 (01:30→09:22)
[2020-01-21] MEDS: D5W 1000 ML IV 1,000 ML IV SCH (02:19)
[2020-01-21 05:01] LABS: BASOPHILS % (AUTO) 0.2 % (0.2-1.0); HEMATOCRIT 35.5 % (36.0-47.0); HEMOGLOBIN 11.8 g/dL (12.0-16.0); LYMPHOCYTES # (AUTO) 0.4 X10^3/uL (1.3-2.9); LYMPHOCYTES % (AUTO) 8.1 % (21.0-51.0); MEAN CORPUSCULAR HEMOGLOBIN 26.5 pg (27.0-34.0); MEAN CORPUSCULAR HGB CONC 33.3 g/dL (33.0-35.0); MEAN CORPUSCULAR VOLUME 79.5 fL (80.0-100.0); MONOCYTES # (AUTO) 0.2 x10^3/uL (0.3-0.8); MONOCYTES % (AUTO) 4.7 % (0.0-13.0); NEUTROPHILS # (AUTO) 4.6 x10^3/uL (2.2-4.8); PLATELET COUNT 227 X10^3/uL (150.0-450.0); RED BLOOD COUNT 4.47 X10^6/uL (3.5-5.4); RED CELL DISTRIBUTION WIDTH 14.4 % (11.6-16.5); WHITE BLOOD COUNT 5.2 X10^3/uL (3.6-10.0)
[2020-01-21 05:17] LABS: ALBUMIN 2.6 g/dL (3.4-5.0); CALCIUM 7.2 mg/dL (8.5-10.1); CARBON DIOXIDE 27.4 mmol/L (21-32); COR CA(FOR HYPOALB) 8.3 mg/dL (8.5-10.1); CREATININE 1.49 mg/dL (0.55-1.02); TOTAL PROTEIN 6.3 g/dL (6.4-8.2)
[2020-01-21] MEDS: ZOFRAN INJ 4 MG VIAL IVP SCH (06:02)
[2020-01-21] MEDS: CARAFATE ORAL SUSP PO SCH ×2 (06:02→14:02)
[2020-01-21] MEDS: SOLU-Medrol 40 MG VIAL IVP SCH ×2 (06:02→14:03)
--- NOTE | 2020-01-21 06:07 | RAD ---
HISTORYShortness of breathSTUDYChest AP [id number]/25/2020FINDINGSLeft-sided central line is in good position. The heart remains wi thin normal limits in size. The cecelia are normal. The lungs are free of acute alveolar infiltrates. Th ere is a focus of subsegmental atelectasis in the left lung base. No pleural effusions are identified . Bony thorax is unremarkable.IMPRESSIONNo significant change from the prior examinationElectronicall y signed by: JOSEPH FRAUSTO (Jan 21, 2020 06:06:43)
[2020-01-21 06:18] LABS: PLATELET MORPHOLOGY COMMENT NORMAL (NORMAL)
[2020-01-21] MEDS ORDERED: BUTT CREAM (COMPOUND) ONE (07:52)
[2020-01-21] MEDS ORDERED: BUTT CREAM (COMPOUND) TOP PRN (08:43)
[2020-01-21] MEDS ORDERED: INVANZ INJ 1 GM VIAL ONE (09:14)
[2020-01-21] MEDS ORDERED: NS 50 ML IV 50 ML IV ONE (09:15)
[2020-01-21] MEDS: INVANZ INJ 1 GM VIAL 0.5 GM in NS 50 ML IV 50 ML IV SCH (09:23)
[2020-01-21] MEDS: LOVENOX INJ 30 MG SYR SC SCH (09:23)
[2020-01-21] MEDS: PEPCID TAB 20 MG PO SCH (09:24)
[2020-01-21] MEDS: NORVASC TAB 5 MG PO SCH (09:24)
[2020-01-21] MEDS: PROTONIX INJ 40 MG VIAL IVP SCH (09:25)
[2020-01-21] MEDS: PLAQUENIL PO SCH (09:25)
[2020-01-21] MEDS: ZITHROMAX INJ 500 MG VIAL 500 MG in NS 250 ML IV 250 ML IV SCH (09:26)
[2020-01-21] MEDS ORDERED: CARAFATE ONE (13:53)
[2020-01-21 16:41] VITALS: BP 120/84
== END 2020-01-21 17:25 | DRG 177 ==
LOC: ICU 18:32 → MED/SURG 01-14 08:43
PROVIDERS: ADMIT Internal Medicine; ATTEND Internal Medicine
DX: K21.9 Gastro-esophageal reflux disease without esophagitis; N18.9 Chronic kidney disease, unspecified; J12.89 Other viral pneumonia; N17.8 Other acute kidney failure; U07.1 COVID-19; N39.0 Urinary tract infection, site not specified; B96.1 Klebsiella pneumoniae [K. pneumoniae] as the cause of diseases classified elsewhere; E87.5 Hyperkalemia; E87.0 Hyperosmolality and hypernatremia; I10 Essential (primary) hypertension; R13.11 Dysphagia, oral phase; I25.10 Atherosclerotic heart disease of native coronary artery without angina pectoris